=== PATIENT | female | born 1960 | race Caucasian/White ===

== ENCOUNTER 2020-08-23 08:47 | Emergency (ER) | payer MEDICARE ==
[~2020-08-23] VITALS: Ht 160 cm; Wt 55.0 kg
[~2020-08-23 08:47] MED LIST: ALBU18HF2 IH; CARCD120C PO; CITA20TA28 PO; DIVA-74 PO; MV-M1TAB19 PO
[2020-08-23 08:53] VITALS: BP 121/36
== END 2020-08-23 09:26 | disposition home or self-care (01) ==
LOC: ER 08:51
DX: B89 Unspecified parasitic disease (principal); R20.2 Paresthesia of skin; G89.29 Other chronic pain; Z87.01 Personal history of pneumonia (recurrent); Z88.0 Allergy status to penicillin; Z88.5 Allergy status to narcotic agent; Z88.2 Allergy status to sulfonamides; Z88.8 Allergy status to other drugs, medicaments and biological substances; Z79.899 Other long term (current) drug therapy
CPT/HCPCS: 99281

== ENCOUNTER 2020-10-08 03:47 | Emergency (ER) | payer MEDICARE ==
[~2020-10-08] VITALS: Ht 160 cm; Wt 52.3 kg
[2020-10-08 03:53] VITALS: BP 170/71
[2020-10-08] MEDS ORDERED: CARI-75 PO (04:39)
== END 2020-10-08 04:52 | disposition home or self-care (01) ==
LOC: ER 03:48
DX: S29.019A Strain of muscle and tendon of unspecified wall of thorax, initial encounter (principal); S39.012A Strain of muscle, fascia and tendon of lower back, initial encounter; G89.29 Other chronic pain; M54.89 Other dorsalgia; Z87.01 Personal history of pneumonia (recurrent); Z88.0 Allergy status to penicillin; Z88.5 Allergy status to narcotic agent; Z88.8 Allergy status to other drugs, medicaments and biological substances; Z91.040 Latex allergy status; Z79.899 Other long term (current) drug therapy; X58.XXXA Exposure to other specified factors, initial encounter; Y93.89 Activity, other specified; Y92.89 Other specified places as the place of occurrence of the external cause; Y99.8 Other external cause status
CPT/HCPCS: 99284